=== PATIENT | male | born 1955 | race Caucasian/White ===

== ENCOUNTER 2018-09-01 03:24 | Inpatient (IN) | payer MEDICAID ==
[~2018-09-01] VITALS: Ht 175.2 cm; Wt 68.0 kg
--- NOTE | ~2018-09-01 | PR ---
[place], [place] PROGRESS NOTE [id number] #: [id number] ROOM: 311 DOCTOR: FRANSISCO URBINA CNP BIRTHDATE: [birth year] DOS: 09/12/2018 CHIEF COMPLAINT: "Good morning." SUMMARY OF VISIT: The patient was interviewed as he sat in the dining room. He did try to engage in conversation with me; however, his speech was somewhat nonsensical. Staff reports that since increase of the Cogentin, his drooling has decreased and that he has been pleasant and improved. He did sleep 4 hours last night and continues to sleep off and on throughout the day. His appetite has been good. MENTAL STATUS EXAMINATION: He is alert and oriented. He was pleasant and cooperative with me. No zachery or hypomania noted. No delusions or paranoia noted. No auditory or visual hallucinations noted. No gross psychosis noted. His speech was somewhat nonsensical. PLAN: I am not going to change any medications today. We will continue to monitor the patient for improvement of his behaviors and improvement of his speech. We will continue to engage the patient in individual and tsang milieu activity and will plan to return to the least restrictive environment once psychiatrically stable. Fransisco Urbina CNP CM:KHUSHBU [id number] FRANSISCO URBINA CNP 09/12/18 2334 interface
--- NOTE | ~2018-09-01 | PR ---
[place], [place] PROGRESS NOTE NAME: MARTY WAYNE UNIT #: [id number] ROOM: 316 DOCTOR: MARTY ARMANDO MD BIRTHDATE: [birth year] DOS: 09/03/2018 INTERVAL NOTE CHIEF COMPLAINT: "Good morning." SUMMARY OF THE VISIT: The patient was interviewed as he was sitting in the dining area, eating his breakfast. He continues to have significant communication difficulties, which frustrated him greatly. MENTAL STATUS: He is alert and oriented to self, unclear place, certainly not time. Mood for the most part this morning was euthymic. Affect was appropriate. As mentioned earlier, he does have significant communication difficulties and speaks rather fragmented. PLAN: I will go ahead and increase his Risperdal to 1 mg t.i.d. attempting to stabilize his mood and decrease impulsivity. Given the cognitive decline and communication difficulties, I will start him on Exelon patch 4.6 mg a day. We will engage in individual and tsang milieu activity, returning to the least restrictive environment when psychiatrically stable. MARTY ARMANDO MD CM:PNTRANS [id number] MARTY ARMANDO MD 09/04/18 0727 interface
--- NOTE | ~2018-09-01 | PR ---
[place], [place] PROGRESS NOTE [id number] UNIT #: [id number] ROOM: 311 DOCTOR: FRANSISCO URBINA CNP BIRTHDATE: [birth year] DOS: 09/13/2018 CHIEF COMPLAINT: "Leave me alone." SUMMARY OF VISIT: The patient was interviewed as he was lying in his bed. He was sleeping whenever I entered his room; however, he did arouse briefly and look at me. He did not engage in conversation with me at this time. Staff reports that the patient has not been sleeping well at night. He sleeps sporadically throughout the day. Appetite has been okay. MENTAL STATUS EXAMINATION: The patient is alert and oriented. He seems somewhat irritable at this time. There was no zachery or hypomania noted. No delusions or paranoia noted. No psychotic symptoms noted. No auditory or visual hallucinations noted. PLAN: We will start the patient on Remeron 15 mg at bedtime due to him not sleeping well. Hopefully, we will see that the Remeron will machine helper in his sleep. We will continue to engage the patient in individual and tsang milieu activity. Continue fall and safety precautions. Plan to return the patient to the least restrictive environment once he is considered psychiatrically stable. Fransisco Urbina CNP CM:PNTRANS [id number] FRANSISCO URBINA CNP 09/13/18 2357 interface
--- NOTE | ~2018-09-01 | PR ---
[place], [place] PROGRESS NOTE NAME: MARTY WAYNE UNIT #: [id number] ROOM: 311 DOCTOR: MARTY ARMANDO MD BIRTHDATE: [birth year] DOS: 09/08/2018 CHIEF COMPLAINT: "Yes, I could use some." SUMMARY OF THE VISIT: The patient was interviewed as he was sitting finishing his breakfast and drinking his coffee. I did ask him if he would like more and with great difficulty and word finding difficulty, was able to express that he would like something more to eat. He was bright and pleasant with me. There was no mood lability, no agitation. Nurses report that he does at times get very frustrated with his communication difficulties and will yell out profanities. He has been, however, trending toward improvement and does seem to be tolerating the current medication regimen well. MENTAL STATUS: He is alert and oriented with significant gaps in memory. Mood does seem to be trending towards euthymia. Affect is much more appropriate. There is no zachery or hypomania. There is no gross psychosis. Short term memory is problematic. PLAN: I will go ahead and maximize out his dose of Exelon patch, bringing it from 9.5 to 13.3 mg a day in an effort to improve or maintain his ADLs, behavior and cognition. I will add Cogentin 0.5 mg twice daily as nurses report significant drooling as the day progresses. We will see if this will offset the extrapyramidal symptoms. We will engage in individual and tsang milieu activity, returning then to the least restrictive environment when psychiatrically stable. MARTY ARMANDO MD CM:PNTRANS [phone] MARTY ARMANDO MD 09/09/18 0343 interface
--- NOTE | ~2018-09-01 | PR ---
[place], [place] PROGRESS NOTE NAME: MARTY WAYNE UNIT #: [id number] ROOM: 311 DOCTOR: MARTY ARMANDO MD BIRTHDATE: [birth year] DOS: 09/10/2018 INTERVAL NOTE CHIEF COMPLAINT: "It is good." SUMMARY OF THE VISIT: The patient was interviewed as he had completed his breakfast. He engaged readily in conversation and actually carried on a short simple conversation with me. He did request that he had more breakfast. He gave me a thumbs up that he was feeling well and was very polite and thanked me for everything. There was no agitation or aggression. There was no sedation or somnolence. He is still drooling mildly, but this seems to be improved from yesterday. MENTAL STATUS: He is alert and oriented to person, place, not to time. Mood does seem to be strongly trending towards euthymia. Affect is much more appropriate. There is no zachery, hypomania or psychosis. Short-term memory continues to be problematic. PLAN: His valproic acid level is therapeutic at 75.7, so I will maintain his current dosing of the Depakote. I will increase Cogentin from 1 mg twice a day to 1 mg 3 times a day to see if we can further improve his drooling. We will continue to engage him in individual and tsang milieu activity, returning then to the least restrictive environment when psychiatrically stable. MARTY ARMANDO MD CM:PNTRANS 4 14 MARTY ARMANDO MD 09/10/186 interface
--- NOTE | ~2018-09-01 | PR ---
[place], [place] PROGRESS NOTE NAME: MARTY WAYNE UNIT #: [id number] ROOM: 311 DOCTOR: MARTY ARMANDO MD BIRTHDATE: [birth year] DOS: 09/11/2018 CHIEF COMPLAINT: "I am good." SUMMARY OF THE VISIT: The patient was interviewed as he was sitting, eating his breakfast in the dining area. He gave me a thumbs up as I approached. He was more understandable and able to converse more readily. His drooling seems to have lessened, but it is still somewhat present. There was no agitation or aggression. MENTAL STATUS: He remains alert and oriented to person, possibly place, not time. Mood does seem to be trending towards euthymia. Affect is more appropriate. There is no zachery or hypomania noted. There are no auditory or visual hallucinations. Memory for short term events remains problematic. PLAN: His valproic acid level is therapeutic at 75.7. This is the second therapeutic level that has been obtained, so his current dosing does seem to be correct. I will increase his Cogentin from 1 mg 3 times a day to 2 mg twice a day in an effort to further lessen his drooling. We will monitor and support, engage in individual and tsang milieu activity, returning to the least restrictive environment when psychiatrically stable. MARTY ARMANDO MD CM:PNTRANS [id number] MARTY ARMANDO MD 09/11/18 1515 interface
--- NOTE | ~2018-09-01 | PR ---
[place], [place] PROGRESS NOTE NAME: MARTY WAYNE UNIT #: [id number] ROOM: 316 DOCTOR: MARTY ARMANDO MD BIRTHDATE: [birth year] DOS: 09/07/2018 INTERVAL NOTE CHIEF COMPLAINT: "Morning." SUMMARY OF THE VISIT: The patient was interviewed as he was in the quiet room in his Armida chair. He was awaiting breakfast. He was somewhat somnolent, but awoke very easily and engaged readily in very superficial conversation, word finding, still is very problematic for him and this does frustrate him. He was not agitated though, however, towards me and was relatively pleasant. MENTAL STATUS: He is alert and oriented to self, unclear place, certainly not time. Mood does seem to be more euthymic. Affect is more appropriate. There is no zachery or hypomania. There were no gross psychotic symptoms. There definitely are issues with processing and his short term memory is problematic. PLAN: I will increase his Namenda to its maximum dose bringing it to 10 mg b.i.d. I will renew his p.r.n. Ativan should he require intervention. Continue to engage in individual and tsnag milieu activity, returning to the least restrictive environment when psychiatrically stable. MARTY ARMANDO MD CM:PNTRANS 3 MARTY ARMANDO MD 09/07/1825 interface
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
--- NOTE | ~2018-09-01 | PR ---
[place], [place] PROGRESS NOTE NAME: MARTY WAYNE UNIT #: [id number] ROOM: 311 DOCTOR: MARTY ARMANDO MD BIRTHDATE: [birth year] DOS: 09/09/2018 CHIEF COMPLAINT: "I'm okay." SUMMARY OF THE VISIT: The patient was interviewed as he was entering the court for further length of stay. The patient was pleasant and cooperative with the whole process. He voiced no complaints. There is noticeable drooling; however. Otherwise he has been much more pleasant and cooperative and his outbursts have dissipated in frequency and intensity. Other than the drooling, he does seem to be tolerating the current medication regimen well and there is no sedation or somnolence. MENTAL STATUS: He is alert and oriented to person, uncertain place, certainly not time. Mood does seem to be trending towards euthymia. Affect is more appropriate. There is no zachery, hypomania or gross psychosis. Memory remains problematic. PLAN: I will increase the Cogentin from 0.5 mg twice a day to 1 mg twice a day to see if this will lessen some of the drooling. I will check a valproic acid level in the a.m. to ensure that it is therapeutic and also obtain a swallow evaluation to make certain that he is able to continue to eat and drink the appropriate consistency of food. MARTY ARMANDO MD CM:PNTRANS [phone] MARTY ARMANDO MD 09/10/18 0313 interface
--- NOTE | ~2018-09-01 | PR ---
[place], [place] PROGRESS NOTE NAME: MARTY WAYNE UNIT #: [id number] ROOM: 316 DOCTOR: MARTY ARMANDO MD BIRTHDATE: [birth year] DOS: 09/04/2018 INTERVAL NOTE CHIEF COMPLAINT: "Yes, I want that." SUMMARY OF THE VISIT: The patient was interviewed as he was sitting in a Armida chair in the quiet room. I asked him if he wanted breakfast and he gave me a short affirmative response. He was bright and pleasant with me, still having a great deal of communication difficulties. He was not agitated or aggressive towards me; however, this is in worley contrast to his behavior as it relates to other staff members. He continues to be labile and at times inappropriate, very impulsive and easily agitated. MENTAL STATUS: He is alert and oriented to self, unclear place, certainly not time. Mood remains labile. Affect inappropriate. There is no zachery, hypomania. He is somewhat delusional and short-term memory is problematic. PLAN: I will increase Exelon patch from 4.6 to 9.5 mg a day and augment it now with Namenda 5 mg a day. I will have a valproic acid level checked in the morning to ensure that it is therapeutic. Engage in individual and tsang milieu activity, returning to the least restrictive environment when psychiatrically stable. MARTY ARMANDO MD CM:PNTRANS MARTY ARMANDO MD 09/04/1833 interface
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
[~2018-09-01 03:24] MED LIST: 'KLONOPIN0.5 MG PO; DEPAKOTE DR500 MG PO; LEVETIRACETAM750 MG PO; PHARMASSURE FO0.4 MG PO; SEROQUEL50 MG PO; THIAMINE HCL50 MG PO; ZOLOFT25 MG PO
[2018-09-01 03:27] VITALS: BP 119/95
[2018-09-01 04:00] LABS: BASO % 0.5 % (0.0-1.0); EOS # 0.2 10*3/uL (0.0-0.4); EOS % 2.8 % (1.0-4.0); HEMATOCRIT 35.8 % (42.0-52.0); HEMOGLOBIN 11.5 g/dl (14.0-18.0); LYMPH # 2.8 10*3/uL (1.3-4.4); LYMPH % 32.9 % (27.0-41.0); MEAN CELL VOLUME 82.9 fl (80.0-94.0); MEAN CORPUSCULAR HGB 26.6 pg (27.0-31.0); MEAN CORPUSCULAR HGB CONC 32.1 g/dl (33.0-37.0); MEAN PLATELET VOLUME 9.8 fl (9.6-12.3); MONO # 0.8 10*3/uL (0.1-1.0); MONO % 9.2 % (3.0-9.0); NEUT # 4.6 10*3/uL (2.3-7.9); NEUT % 54.2 % (47.0-73.0); PLATELET COUNT AUTOMATED 226 10*3/uL (130-400); RED BLOOD COUNT 4.32 10*6/uL (4.50-5.90); RED CELL DISTRI WIDTH 18.3 % (0-14.5); WHITE BLOOD COUNT 8.5 10*3/uL (4.8-10.8)
[2018-09-01 04:04] VITALS: BP 130/82
[2018-09-01 04:17] LABS: ACETAMINOPHEN (TYLENOL) < 5.0 ug/ml (10-30); ALBUMIN 3.3 gm/dl (3.1-4.5); ALKALINE PHOSPHATASE 97 U/L (45-117); BUN 12 mg/dl (7-24); CHLORIDE 103 mmol/L (98-107); CREATININE 0.85 mg/dL (0.70-1.30); ETHYL ALCOHOL < 3.0 mg/dl (<3); POTASSIUM 3.9 mmol/L (3.5-5.1); SGOT/AST 12 IU/L (3-35); SGPT/ALT 16 U/L (12-78); SODIUM 140 mmol/L (136-145)
[2018-09-01 04:49] VITALS: BP 128/78
[2018-09-01 05:20] LABS: BILIRUBIN NEGATIVE (NEGATIVE); BLOOD TRACE-LYSED (NEGATIVE); CLARITY CLEAR (CLEAR); COLOR YELLOW (YELLOW); GLUCOSE NEGATIVE (NEGATIVE); KETONE NEGATIVE (NEGATIVE); LEUKO ESTERASE 3+ (NEGATIVE); NITRITE NEGATIVE (NEGATIVE); SPECIFIC GRAVITY <= 1.005 (1.005-1.030); UROBILINOGEN 0.2 E.U./dl (0.2-1.0)
[2018-09-01 05:28] LABS: URINE AMPHETAMINES < 1000 (1000ng/ml); URINE BARBITURATES < 200 (200ng/ml); URINE BENZODIAZEPINES < 200 (200ng/ml); URINE CANNABINOIDS (THC) < 50 (50ng/ml); URINE COCAINE < 300 (300ng/ml); URINE METHADONE < 300 (300ng/ml); URINE OPIATES < 300 (300ng/ml); WBC 16-20 wbc/hpf (0-5)
[2018-09-01 05:40] LABS: URINE PHENCYCLIDINE < 25 (25ng/ml)
[2018-09-01] MEDS ORDERED: QUETIAPINE FUMA50 M1 PO (07:21)
[2018-09-01 09:56] VITALS: BP 127/81
[2018-09-01 21:17] VITALS: BP 110/82
[2018-09-02 08:29] VITALS: BP 125/94
[2018-09-02 08:30] LABS: THYROID STIM HORMONE (HS) 2.52 uIU/ml (0.358-4.75); VALPROIC ACID (DEPAKENE) 44.4 ug/ml (50-100)
[2018-09-02 08:44] LABS: VITAMIN D, 25-HYDROXY 24.3 ng/mL (30-100)
[2018-09-02 20:54] VITALS: BP 119/85
[2018-09-03 08:02] VITALS: BP 132/85
[2018-09-03 20:26] VITALS: BP 130/83
[2018-09-04 08:34] VITALS: BP 107/81
[2018-09-04 19:20] VITALS: BP 110/80
[2018-09-05 08:12] VITALS: BP 118/67
[2018-09-05 19:51] VITALS: BP 114/65
[2018-09-05 22:05] LABS: LEVETIRACETAM (KEPPRA) 716936 13.9 ug/mL (10.0-40.0)
[2018-09-06 07:55] VITALS: BP 108/75
[2018-09-06 20:00] VITALS: BP 152/87
[2018-09-07 08:09] VITALS: BP 121/67
[2018-09-07 20:47] VITALS: BP 112/74
[2018-09-08 08:04] VITALS: BP 121/73
[2018-09-08 20:30] VITALS: BP 117/65
[2018-09-09 07:45] VITALS: BP 117/84
[2018-09-09 19:58] VITALS: BP 127/84
[2018-09-10 08:06] VITALS: BP 128/88
[2018-09-10 20:00] VITALS: BP 125/76
[2018-09-11 07:37] VITALS: BP 121/72
[2018-09-11 19:39] VITALS: BP 129/65
[2018-09-12 08:01] VITALS: BP 132/65
[2018-09-12 20:01] VITALS: BP 113/63
[2018-09-13 08:07] VITALS: BP 110/65
[2018-09-13 20:34] VITALS: BP 116/85
[2018-09-14 07:18] VITALS: BP 124/69
[2018-09-14] MEDS ORDERED: MIRTAZAPINE15 M2 PO (10:37)
[2018-09-14] MEDS ORDERED: RISPERIDONE0.5 MG PO (10:37)
[2018-09-14] MEDS ORDERED: BENZTROPINE MESY1 MG PO (10:37)
[2018-09-14] MEDS ORDERED: LEVETIRACE500 MG/5 M PO (10:37)
[2018-09-14] MEDS ORDERED: DIVALPROEX SOD125 M1 PO (10:37)
[2018-09-14] MEDS ORDERED: MEMANTINE HCL10 MG PO (10:37)
[2018-09-14] MEDS ORDERED: EXELON13.3 MG/21 T (10:37)
== END 2018-09-14 16:34 | DRG 883 ==
LOC: ED 03:24 → 3N 06:37
PROVIDERS: Student in an Organized Health Care Education/Training Program; ADMIT Psychiatry & Neurology Psychiatry
DX: F63.81 Intermittent explosive disorder (principal); F91.9 Conduct disorder, unspecified; F33.9 Major depressive disorder, recurrent, unspecified; F03.90 Unspecified dementia, unspecified severity, without behavioral disturbance, psychotic disturbance, mood disturbance, and anxiety; G40.909 Epilepsy, unspecified, not intractable, without status epilepticus; G93.41 Metabolic encephalopathy; R48.2 Apraxia; F41.1 Generalized anxiety disorder; J44.9 Chronic obstructive pulmonary disease, unspecified; R41.9 Unspecified symptoms and signs involving cognitive functions and awareness; X58.XXXA Exposure to other specified factors, initial encounter; F10.21 Alcohol dependence, in remission; Z88.5 Allergy status to narcotic agent; Z79.899 Other long term (current) drug therapy; Y93.89 Activity, other specified; Y92.89 Other specified places as the place of occurrence of the external cause; Y99.8 Other external cause status; Z86.73 Personal history of transient ischemic attack (TIA), and cerebral infarction without residual deficits; S09.8XXS Other specified injuries of head, sequela